=== PATIENT | male | born 1965 | race Hispanic/Latino ===

== ENCOUNTER 2016-11-29 06:01 | Day surgery (SDC) | payer OTHER ==
[2016-11-29] MEDS ORDERED: LACTATED RINGERS 1,000 ML ONE (06:15)
[2016-11-29] MEDS ORDERED: PROPOFOL 200 MG/20 ML VIAL IV ONE (07:00)
[2016-11-29] MEDS ORDERED: LIDOCAINE 1% 10 ML VIAL INJ ONE (07:00)
[2016-11-29] MEDS ORDERED: MIDAZOLAM INJ 5 MG/5 ML VIAL ONE (07:15)
[2016-11-29] MEDS ORDERED: fentaNYL CITRATE INJ 50 MCG/ML AMP ONE (07:16)
[2016-11-29 08:50] VITALS: BP 120/81; TEMP 98.3; O2SAT 97
--- NOTE | 2016-11-29 09:01 | OP ---
DATE OF PROCEDURE: 11/29/16 PREOPERATIVE DIAGNOSIS: 1. Colon cancer screen. POSTOPERATIVE DIAGNOSIS: 1. Normal colon to the cecum. PROCEDURE: 1. Colonoscopy. SURGEON: Ac Reich MD. ANESTHESIA: MAC by Thor Sue CRNA. ESTIMATED BLOOD LOSS: None. COMPLICATIONS: None apparent. TECHNIQUE: After informed consent was obtained from the patient, the patient was taken to the Endoscopy Suite and put in the left lateral decubitus position. After adequate IV sedation was obtained, a digital rectal exam was performed which revealed normal sphincter tone, no intraluminal masses, and a smooth, 1+, anodular prostate. The colonoscope was then passed with good visualization all the way through the colon. The bowel prep was good. The cecum was identified by the presence of ileocecal valve. The scope was then withdrawn slowly over the next 8 to 10 minutes and a good look at the entire colonic mucosa was obtained. There were no polyps, masses, diverticula, or other mucosal abnormalities identified. The scope was removed. The patient tolerated the procedure well. The patient was transported to the outpatient area in good condition. He will followup with me on an as needed basis. #[id number] [facility]
== END 2016-11-29 08:35 | disposition home or self-care (01) ==
LOC: AMB 06:01
PROVIDERS: ATTEND Family Medicine
DX: Z12.11 Encounter for screening for malignant neoplasm of colon (principal); E78.00 Pure hypercholesterolemia, unspecified
CPT/HCPCS: 00810; 45378; J2250; J3010; J3490; J7120